=== PATIENT | female | born 1965 | race Caucasian/White ===

== ENCOUNTER 2018-02-03 21:18 | Emergency (ER) | payer BC, MEDICAID ==
[2018-02-04] MEDS: CYCLOBENZAPRINE 10 MG TAB PO (00:19)
[2018-02-04] MEDS: HYDROCODONE/APAP (5/325) TAB PO (00:19)
== END 2018-02-04 00:46 | disposition home or self-care (01) ==
LOC: FTE 21:18
DX: S16.1XXA Strain of muscle, fascia and tendon at neck level, initial encounter (principal); S39.012A Strain of muscle, fascia and tendon of lower back, initial encounter; S00.93XA Contusion of unspecified part of head, initial encounter; V89.2XXA Person injured in unspecified motor-vehicle accident, traffic, initial encounter
CPT/HCPCS: 99283; Z7502